=== PATIENT | male | born 1990 | race Caucasian/White ===

== ENCOUNTER 2019-06-21 06:58 | Emergency (ER) | payer SELFPAY ==
[~2019-06-21] VITALS: Ht 165.1 cm; Wt 95.5 kg
[2019-06-21 07:06] VITALS: BP 149/100
[2019-06-21] MEDS ORDERED: PENICILLIN V POTASSIUM 500 MG TABLET PO ONE (07:30)
[2019-06-21] MEDS ORDERED: OxyCODONE HCL/ACETAMINOPHEN 5-325 MG TABLET PO ONE (07:30)
== END 2019-06-21 08:43 | disposition home or self-care (01) ==
LOC: EMS 06:58
DX: K02.9 Dental caries, unspecified (principal); F17.210 Nicotine dependence, cigarettes, uncomplicated